=== PATIENT | female | born 2000 | race Caucasian/White ===

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

== ENCOUNTER → 2019-03-11 | Outpatient (CLI) | payer OTHER ==
--- NOTE | 2019-03-11 11:03 | REP ---
REASON: Biliary colic. COMPARISON: None. After the intravenous administration of 6.6 millicuries of technetium 99m Choletec, hepatobiliary imaging was performed with gallbladder ejection fraction calculation. There is symmetric distribution of the radiotracer throughout the hepatocytes. The gallbladder is promptly visualized at 10 minutes. The gallbladder ejection fraction is calculated at 83%. IMPRESSION: Normal exam. Electronically Signed by Olivier Morton DO 03/11/2019 12:45 P
== END ==
LOC: M RAD 07:20
PROVIDERS: ATTEND Surgery
DX: R10.11 Right upper quadrant pain (principal)
CPT/HCPCS: 78227; A9537; J2805

== ENCOUNTER 2019-04-04 12:04 | Day surgery (SDC) | payer OTHER ==
[~2019-04-04] VITALS: Ht 147.3 cm; Wt 61.4 kg
[~2019-04-04 12:04] MED LIST changes: +NS 1,000 ML IV ONE; +RANI15TA PO
[2019-04-04] MEDS ORDERED: LIDOCAINE 2% INJ 100 MG/5 ML SDV (FOR ANES.) As Ordered ONE ×2 (14:49→14:50)
[2019-04-04] MEDS ORDERED: PROPOFOL 200 MG/20 ML VIAL As Ordered ONE ×2 (14:49→15:10)
--- NOTE | 2019-04-04 15:14 | ROOR ---
Patient Name: Giovanna Hodge Procedure Date: 04/04/2019 2:59 PM Date of : 2000 Age: 18 Room: [facility] Gender: Female Note Status: Finalized Procedure: Upper GI endoscopy Indications: Epigastric abdominal pain Providers: Jamel Dunn Jr, MD Referring MD: Liseth JENNINGS DO Requesting Provider: Medicines: Propofol per Anesthesia Complications: No immediate complications. Procedure: Pre-Anesthesia Assessment: - Prior to the procedure, a History and Physical was performed, and patient medications and allergies were reviewed. The patient is competent. The risks and benefits of the procedure and the sedation options and risks were discussed with the patient. All questions were answered and informed consent was obtained. Patient identification and proposed procedure were verified by the physician and the nurse in the pre-procedure area and in the procedure room. Mental Status Examination: alert and oriented. Airway Examination: normal oropharyngeal airway and neck mobility. Respiratory Examination: clear to auscultation. CV Examination: normal. ASA Grade Assessment: II - A patient with mild systemic disease. After reviewing the risks and benefits, the patient was deemed in satisfactory condition to undergo the procedure. The anesthesia plan was to use moderate sedation / analgesia (conscious sedation). Immediately prior to administration of medications, the patient was re-assessed for adequacy to receive sedatives. The heart rate, respiratory rate, oxygen saturations, blood pressure, adequacy of pulmonary ventilation, and response to care were monitored throughout the procedure. The physical status of the patient was re-assessed after the procedure. The Endoscope was introduced through the mouth, and advanced to the duodenal bulb. The upper GI endoscopy was accomplished without difficulty. The upper GI endoscopy was accomplished without difficulty. The patient tolerated the procedure. Findings: The upper third of the esophagus, middle third of the esophagus and lower third of the esophagus were normal. The cardia, gastric fundus, gastric body, gastric antrum and prepyloric region of the stomach were normal. Biopsies were taken with a cold forceps for histology. One non-bleeding cratered duodenal ulcer with no stigmata of bleeding was found in the duodenal bulb. Impression: - Normal upper third of esophagus, middle third of esophagus and lower third of esophagus. - Normal cardia, gastric fundus, gastric body, antrum and prepyloric region of the stomach. Biopsied. - One non-bleeding duodenal ulcer with no stigmata of bleeding. Recommendation: - Discharge patient to home (ambulatory). - Return to my office as previously scheduled. Jamel Dunn MD Jamel Dunn Jr, MD 04/04/2019 3:14:06 PM Electronically signed by Jamel Dunn Jr, MD Number of Addenda: 0 Note Initiated On: 04/04/2019 2:59 PM Estimated Blood Loss: Estimated blood loss: none.
[2019-04-04 15:56] VITALS: BP 133/75
== END 2019-04-04 15:55 | disposition home or self-care (01) ==
LOC: M OPP 12:04
PROVIDERS: ATTEND Surgery
DX: K26.9 Duodenal ulcer, unspecified as acute or chronic, without hemorrhage or perforation (principal); R10.13 Epigastric pain

== ENCOUNTER → 2019-05-14 | Outpatient (CLI) | payer OTHER ==
[~2019-05-14] MED LIST changes: -NS 1,000 ML IV ONE
== END ==
LOC: M LAB 10:22
PROVIDERS: ATTEND Nurse Practitioner
DX: B96.81 Helicobacter pylori [H. pylori] as the cause of diseases classified elsewhere (principal)

== ENCOUNTER → 2019-08-07 | Outpatient (REF) | payer OTHER ==
[2019-08-07 17:34] LABS: BASO # 0.1 10^3/uL (0.0-0.2); BASO % 1.1 % (0.0-1.0); EOS # 0.1 10^3/uL (0.0-0.5); EOS % 1.6 % (0.0-3.0); HEMATOCRIT 37.7 % (36.0-47.0); HEMOGLOBIN 12.2 g/dl (12.0-15.5); LYMPH # 2.8 10^3/uL (1.5-5.0); LYMPH % 35.2 % (24.0-44.0); MEAN CORPUSCULAR HGB CONC 32.4 g/dl (32.0-36.5); MEAN CORPUSCULAR VOLUME 86.5 fl (80.0-96.0); MONO # 0.7 10^3/uL (0.0-0.8); MONO % 8.5 % (0.0-5.0); NEUTROPHILS # 4.2 10^3/uL (1.5-8.5); NEUTROPHILS % 53.5 % (36.0-66.0); PLATELET COUNT, AUTOMATED 332 10^3/uL (150-450); RED BLOOD COUNT 4.36 10^6/uL (4.00-5.40); WHITE BLOOD COUNT 7.9 10^3/uL (4.0-10.0)
[2019-08-07 17:53] LABS: ALBUMIN 4.1 GM/DL (3.2-5.2); ALT/SGPT 45 U/L (12-78); BILIRUBIN,TOTAL 0.2 MG/DL (0.2-1.0); BLOOD UREA NITROGEN 11 MG/DL (7-18); CALCIUM LEVEL 9.5 MG/DL (8.5-10.1); CARBON DIOXIDE LEVEL 27 MEQ/L (21-32); CHLORIDE LEVEL 104 MEQ/L (98-107); CREATININE FOR GFR 0.72 MG/DL (0.55-1.30); FREE T4 0.89 NG/DL (0.78-1.33); GLUCOSE, FASTING 74 MG/DL (70-100); POTASSIUM SERUM 3.9 MEQ/L (3.5-5.1); SODIUM LEVEL 137 MEQ/L (136-145); TOTAL PROTEIN 7.3 GM/DL (6.4-8.2)
[2019-08-07 17:55] LABS: TOTAL 25(OH) VITAMIN D 20.5 NG/ML (30.0-100.0)
== END ==
LOC: M LABDRWAD 16:21
PROVIDERS: ATTEND Physician Assistant
DX: R00.2 Palpitations (principal)

== ENCOUNTER → 2020-09-29 | Outpatient (REF) | payer OTHER ==
[~2020-09-29] MED LIST changes: +AMOX875T PO; +LIDO2SOL17 PO; +OMEP40CA97 PO
== END ==
LOC: M LAB REF 12:19
PROVIDERS: ATTEND Nurse Practitioner Family
DX: J02.9 Acute pharyngitis, unspecified (principal)

== ENCOUNTER 2020-09-30 20:16 | Emergency (ER) | payer OTHER ==
[~2020-09-30] VITALS: Ht 147.3 cm; Wt 65.9 kg
[2020-09-30 20:16] VITALS: BP 126/69
[~2020-09-30 20:16] MED LIST changes: -AMOX875T PO; -LIDO2SOL17 PO; -OMEP40CA97 PO
[2020-09-30] MEDS ORDERED: AMOX875T PO (20:23)
[2020-09-30] MEDS ORDERED: OMEP40CA97 PO (20:23)
[2020-09-30] MEDS ORDERED: ACETAMINOPHEN 325 MG TAB PO ONE (20:45)
[2020-09-30] MEDS ORDERED: LIDOCAINE VISCOUS 2% SOLN 15ML UDC SS ONE (20:45)
[2020-09-30 21:17] LABS: BASO # 0.1 10^3/uL (0.0-0.2); BASO % 0.4 % (0.0-1.0); EOS % 0.2 % (0.0-3.0); HEMATOCRIT 39.6 % (36.0-47.0); HEMOGLOBIN 12.8 g/dl (12.0-15.5); LYMPH # 1.2 10^3/uL (1.5-5.0); LYMPH % 8.5 % (24.0-44.0); MEAN CORPUSCULAR HGB CONC 32.3 g/dl (32.0-36.5); MEAN CORPUSCULAR VOLUME 89.8 fl (80.0-96.0); MONO # 1.2 10^3/uL (0.0-0.8); MONO % 8.9 % (2.0-8.0); NEUTROPHILS # 11.1 10^3/uL (1.5-8.5); NEUTROPHILS % 81.7 % (36.0-66.0); PLATELET COUNT, AUTOMATED 234 10^3/uL (150-450); RED BLOOD COUNT 4.41 10^6/uL (4.00-5.40); WHITE BLOOD COUNT 13.6 10^3/uL (4.0-10.0)
[2020-09-30 21:52] LABS: MONO REFLEX EBV COMP NEGATIVE (NEGATIVE)
[2020-09-30] MEDS ORDERED: LIDO2SOL17 PO (22:52)
[2020-10-02 18:07] LABS: EBV AB TO NUCLEAR ANTIGEN <18.0 U/mL (0.0-17.9); EBV VIRAL CAPSID AG IgG <18.0 U/mL (0.0-17.9); EBV VIRAL CAPSID AG IgM <36.0 U/mL (0.0-35.9)
== END 2020-09-30 23:04 | disposition home or self-care (01) ==
LOC: M ED 20:16
DX: J02.9 Acute pharyngitis, unspecified (principal)

== ENCOUNTER → 2020-10-06 | Outpatient (REF) | payer OTHER ==
[~2020-10-06] MED LIST changes: +AMOX875T PO; +LIDO2SOL17 PO; +OMEP40CA97 PO
== END ==
LOC: M LAB REF 16:47
PROVIDERS: ATTEND Physician Assistant
DX: J02.9 Acute pharyngitis, unspecified (principal)

== ENCOUNTER → 2021-01-13 | Outpatient (REF) | payer OTHER ==
[2021-01-13 14:34] LABS: HEMATOCRIT 38.4 % (36.0-47.0); HEMOGLOBIN 12.9 g/dl (12.0-15.5); MEAN CORPUSCULAR HEMOGLOBIN 29.1 pg (27.0-33.0); MEAN CORPUSCULAR HGB CONC 33.6 g/dl (32.0-36.5); MEAN CORPUSCULAR VOLUME 86.7 fl (80.0-96.0); PLATELET COUNT, AUTOMATED 315 10^3/uL (150-450); RED BLOOD COUNT 4.43 10^6/uL (4.00-5.40); WHITE BLOOD COUNT 8.3 10^3/uL (4.0-10.0)
[2021-01-13 15:35] LABS: HEPATITIS C VIRUS ABY INDEX < 0.0 INDEX (<0.8); HIV 1&2 SCREEN CENTAUR NEGATIVE (NEGATIVE)
[2021-01-13 16:16] LABS: CHLAMYDIA DNA AMPLIFICATION NEGATIVE (NEGATIVE); GC DNA AMPLIFICATION NEGATIVE (NEGATIVE)
== END ==
LOC: M PLALAB 10:44
PROVIDERS: ATTEND Advanced Practice Midwife
DX: Z34.01 Encounter for supervision of normal first pregnancy, first trimester (principal)

== ENCOUNTER → 2021-03-08 | Outpatient (CLI) | payer OTHER ==
[~2021-03-08] MED LIST changes: +OMEP40CA4 PO; -OMEP40CA97 PO
--- NOTE | 2021-03-08 13:29 | REP ---
INDICATION: ANATOMY - EDC 07/29/21. COMPARISON: None. TECHNIQUE: Transabdominal scanning FINDINGS: Multiple ultrasonographic images of the gravid uterus shows a single living intrauterine gestation in variable positions. Doppler interrogation of the heart shows a heart rate of 138 beats per minute. The placenta is posterior and not low-lying. The cervix measures 3.5 cm in length and is closed. The subjective amniotic fluid volume is within normal limits. BPD: 4.3 cm 19 weeks 0 days HC: 15.6 cm 18 weeks 4 days AC: 14.5 cm 19 weeks 6 days FL: 2.8 cm 18 weeks 5 days The estimated weight is 280 g. A percentile was not calculated by the technologist The anatomical structures seen to be unremarkable are as follows: Thalami, cavum septum pellucidum, cerebellum, cisterna magna, cerebral ventricles, spine, kidneys, stomach, upper lip, cord insertion, three-vessel umbilical cord, and upper and lower extremities. anatomical structures seen suboptimally are as follows: Four-chamber heart and ventricular outflow tracts IMPRESSION: Single living intrauterine gestation as described above with an estimated gestational age of 19 weeks 0 days via composite criteria and an estimated date of delivery of 08/02/2021 by today's exam. No anomalies were detected, however, recommend a follow-up examination to better visualize those structures not well seen today as described above. <Electronically signed by Olivier Morton > 03/08/21 [id number]
== END ==
LOC: M WHC 11:30
PROVIDERS: ATTEND Advanced Practice Midwife
DX: Z36.3 Encounter for antenatal screening for malformations (principal); Z3A.19 19 weeks gestation of pregnancy

== ENCOUNTER → 2021-03-25 | Outpatient (CLI) | payer OTHER ==
--- NOTE | 2021-03-25 10:25 | REP ---
INDICATION: F/U ANATOMY. FOLLOW-UP FOUR-CHAMBER HEART AND VENTRICULAR OUTFLOW TRACKS COMPARISON: 03/08/2021 TECHNIQUE: Transabdominal scanning FINDINGS: Multiple ultrasonographic images of the gravid uterus shows a single living intrauterine gestation in variable positions. Doppler interrogation of the heart shows a heart rate of 150 beats per minute. The placenta is posterior and not low-lying. The cervix measures 5 cm in length and is closed. The subjective amniotic fluid volume is within normal limits. BPD: 4.8 cm 20 weeks 4 days HC: 18.8 cm 21 weeks 1 day AC: 16.3 cm 21 weeks 2 days FL: 3.5 cm 21 weeks 1 day The estimated weight is 406 g which is at the 13th percentile for a 22 week 0 day gestational age. No images of the left ventricular outflow tract were obtained. Images of the right ventricular outflow track are suboptimal. Four-chamber heart was seen and was unremarkable in appearance. IMPRESSION: Single living intrauterine gestation as described above with an estimated gestational age of 21 weeks 0 days via composite criteria an estimated date of delivery of 08/05/2021 by today's exam. Follow-up ventricular outflow tracts is again recommended. <Electronically signed by Olivier Morton > 03/25/21 1022
== END ==
LOC: M WHC 07:52
PROVIDERS: ATTEND Advanced Practice Midwife
DX: Z36.89 Encounter for other specified antenatal screening (principal); Z3A.20 20 weeks gestation of pregnancy

== ENCOUNTER → 2021-04-08 | Outpatient (CLI) | payer OTHER | LOC: M PLALAB 11:23 | PROVIDERS: ATTEND Specialist | DX: Z34.82 Encounter for supervision of other normal pregnancy, second trimester (principal) ==

== ENCOUNTER → 2021-04-15 | Outpatient (CLI) | payer OTHER ==
[2021-04-15 13:54] LABS: HEMATOCRIT 33.8 % (36.0-47.0); HEMOGLOBIN 11.3 g/dl (12.0-15.5); MEAN CORPUSCULAR HGB CONC 33.4 g/dl (32.0-36.5); MEAN CORPUSCULAR VOLUME 92.6 fl (80.0-96.0); PLATELET COUNT, AUTOMATED 271 10^3/uL (150-450); RED BLOOD COUNT 3.65 10^6/uL (4.00-5.40)
[2021-04-15 15:46] LABS: GC DNA AMPLIFICATION NEGATIVE (NEGATIVE)
== END ==
LOC: M PLALAB 10:13
PROVIDERS: ATTEND Specialist
DX: Z34.02 Encounter for supervision of normal first pregnancy, second trimester (principal)

== ENCOUNTER → 2021-04-23 | Outpatient (CLI) | payer OTHER ==
--- NOTE | 2021-04-23 15:53 | REP ---
INDICATION: F/U ANATOMY. COMPARISON: 03/25/2021. TECHNIQUE: Real-time sonographic evaluation of the gravid uterus performed. FINDINGS: Estimated gestational age is26 weeks 1 day, EDC 07/29/2021. Today's measurements indicate appropriate growth. Presentation: Cephalic Placenta posterior, grade 2, without evidence of placenta previa. heart rate is recorded at 138 beats per minute. Amniotic fluid is subjectively normal. Closed cervical length is measured at 4.7 cm. Biometry chart: BPD: 63 mm, 25 weeks 4 days, 38th percentile. HC: 238 mm, 25 weeks 6 days, 43rd percentile AC: 211 mm, 25 weeks 5 days, 40th percentile Femur length: 46 mm, 25 weeks 0 days, 27th percentile HC to AC ratio: 1.12, normal range 1.00-1.19. Estimated weight: 813g, 16th percentile. Visualized anatomy today includes four-chamber heart and ventricular outflow tracts which appear unremarkable. IMPRESSION: Viable single intrauterine gestation as above. The four-chamber heart and ventricular outflow tracts are identified and are grossly unremarkable. <Electronically signed by Tk Montgomery > 04/23/21 [id number]
== END ==
LOC: M WHC 14:57
PROVIDERS: ATTEND Specialist
DX: Z34.02 Encounter for supervision of normal first pregnancy, second trimester (principal)

== ENCOUNTER → 2021-07-07 | Outpatient (REF) | payer OTHER | LOC: M SFHCWAGY 10:18 | PROVIDERS: ATTEND Obstetrics & Gynecology | DX: Z34.03 Encounter for supervision of normal first pregnancy, third trimester (principal) ==

== ENCOUNTER → 2021-12-24 | Outpatient (REF) | payer OTHER ==
[~2021-12-24] MED LIST changes: +PRENTAB9 PO
== END ==
LOC: M PLALAB 09:26
PROVIDERS: ATTEND Advanced Practice Midwife
DX: Z01.419 Encounter for gynecological examination (general) (routine) without abnormal findings (principal); Z12.4 Encounter for screening for malignant neoplasm of cervix

== ENCOUNTER → 2021-12-29 | Outpatient (CLI) | payer OTHER ==
[2021-12-29 13:07] LABS: BASO # 0.1 10^3/uL (0.0-0.2); BASO % 1.1 % (0.0-1.0); EOS # 0.2 10^3/uL (0.0-0.5); EOS % 2.7 % (0.0-3.0); HEMATOCRIT 39.3 % (36.0-47.0); HEMOGLOBIN 13.2 g/dl (12.0-15.5); LYMPH # 2.6 10^3/uL (1.5-5.0); LYMPH % 39.8 % (24.0-44.0); MEAN CORPUSCULAR HEMOGLOBIN 28.8 pg (27.0-33.0); MEAN CORPUSCULAR HGB CONC 33.6 g/dl (32.0-36.5); MEAN CORPUSCULAR VOLUME 85.8 fl (80.0-96.0); MONO # 0.5 10^3/uL (0.0-0.8); MONO % 7.6 % (2.0-8.0); NEUTROPHILS # 3.2 10^3/uL (1.5-8.5); NEUTROPHILS % 48.6 % (36.0-66.0); PLATELET COUNT, AUTOMATED 240 10^3/uL (150-450); RED BLOOD COUNT 4.58 10^6/uL (4.00-5.40); WHITE BLOOD COUNT 6.6 10^3/uL (4.0-10.0)
[2021-12-29 13:50] LABS: ALBUMIN 4.1 GM/DL (3.2-5.2); ALT/SGPT 20 U/L (12-78); BILIRUBIN,TOTAL 0.4 MG/DL (0.2-1.0); BLOOD UREA NITROGEN 15 MG/DL (7-18); CALCIUM LEVEL 8.9 MG/DL (8.5-10.1); CARBON DIOXIDE LEVEL 28 MEQ/L (21-32); CHLORIDE LEVEL 108 MEQ/L (98-107); CREATININE FOR GFR 0.72 MG/DL (0.55-1.30); FREE T4 1.08 NG/DL (0.76-1.46); GLOMERULAR FILTRATION RATE > 60.0 (>60); GLUCOSE, FASTING 75 MG/DL (70-100); POTASSIUM SERUM 4.2 MEQ/L (3.5-5.1); SODIUM LEVEL 140 MEQ/L (136-145); THYROID STIMULATING HORMONE 0.711 uIU/ML (0.358-3.740)
== END ==
LOC: M ADAMS 10:18
PROVIDERS: ATTEND Physician Assistant
DX: Z13.29 Encounter for screening for other suspected endocrine disorder (principal)

== ENCOUNTER → 2022-03-31 | Outpatient (REF) | payer OTHER ==
[2022-03-31 13:06] LABS: BASO # 0.1 10^3/uL (0.0-0.2); BASO % 1.2 % (0.0-1.0); EOS # 0.1 10^3/uL (0.0-0.5); EOS % 1.2 % (0.0-3.0); HEMATOCRIT 41.4 % (36.0-47.0); HEMOGLOBIN 13.7 g/dl (12.0-15.5); LYMPH # 2.5 10^3/uL (1.5-5.0); LYMPH % 43.1 % (24.0-44.0); MEAN CORPUSCULAR HEMOGLOBIN 29.5 pg (27.0-33.0); MEAN CORPUSCULAR HGB CONC 33.1 g/dl (32.0-36.5); MONO # 0.4 10^3/uL (0.0-0.8); MONO % 7.2 % (2.0-8.0); NEUTROPHILS # 2.7 10^3/uL (1.5-8.5); NEUTROPHILS % 47.1 % (36.0-66.0); PLATELET COUNT, AUTOMATED 257 10^3/uL (150-450); RED BLOOD COUNT 4.65 10^6/uL (4.00-5.40); WHITE BLOOD COUNT 5.7 10^3/uL (4.0-10.0)
[2022-03-31 13:51] LABS: ALBUMIN 4.2 GM/DL (3.2-5.2); ALT/SGPT 18 U/L (12-78); BILIRUBIN,TOTAL 0.3 MG/DL (0.2-1.0); BLOOD UREA NITROGEN 15 MG/DL (7-18); CALCIUM LEVEL 9.7 MG/DL (8.5-10.1); CARBON DIOXIDE LEVEL 27 MEQ/L (21-32); CHLORIDE LEVEL 103 MEQ/L (98-107); CREATININE FOR GFR 0.72 MG/DL (0.55-1.30); GLOMERULAR FILTRATION RATE > 60.0 (>60); GLUCOSE, FASTING 76 MG/DL (70-100); POTASSIUM SERUM 3.9 MEQ/L (3.5-5.1); SODIUM LEVEL 136 MEQ/L (136-145); TOTAL PROTEIN 7.1 GM/DL (6.4-8.2)
[2022-04-06 16:11] LABS: ANA (HEP2) Negative (.); F002-IgE Milk < 0.10 kU/L (Class 0); F013-IgE Peanut < 0.10 kU/L (Class 0); F014-IgE Soybean < 0.10 kU/L (Class 0); F026-IgE Pork < 0.10 kU/L (Class 0); F027-IgE Beef < 0.10 kU/L (Class 0); F245-IgE Egg, Whole < 0.10 kU/L (Class 0); FX02-IgE Food Mix (Sea Foods) Negative (.)
== END ==
LOC: M LABDRWAD 12:34
PROVIDERS: ATTEND Physician Assistant
DX: L27.2 Dermatitis due to ingested food (principal)

== ENCOUNTER → 2022-07-26 | Outpatient (REF) | payer OTHER | LOC: M SFHCDERM 14:46 | PROVIDERS: ATTEND Nurse Practitioner Family | DX: K13.0 Diseases of lips (principal) ==

== ENCOUNTER → 2022-07-29 | Outpatient (REF) | payer OTHER | LOC: M LAB REF 15:00 | PROVIDERS: ATTEND Physician Assistant | DX: Z86.14 Personal history of Methicillin resistant Staphylococcus aureus infection (principal) ==

== ENCOUNTER → 2022-11-24 | Outpatient (CLI) | payer OTHER ==
[~2022-11-24] MED LIST changes: +LIDO15SO PO; -LIDO2SOL17 PO
[2022-11-24 17:54] LABS: BASO # 0.1 10^3/uL (0.0-0.2); EOS # 0.1 10^3/uL (0.0-0.5); HEMATOCRIT 38.8 % (36.0-47.0); LYMPH # 2.9 10^3/uL (1.5-5.0); LYMPH % 37.3 % (24.0-44.0); MEAN CORPUSCULAR HEMOGLOBIN 30.1 pg (27.0-33.0); MEAN CORPUSCULAR HGB CONC 33.5 g/dl (32.0-36.5); MEAN CORPUSCULAR VOLUME 89.8 fl (80.0-96.0); MONO # 0.6 10^3/uL (0.0-0.8); MONO % 8.1 % (2.0-8.0); NEUTROPHILS # 4.1 10^3/uL (1.5-8.5); NEUTROPHILS % 52.3 % (36.0-66.0); PLATELET COUNT, AUTOMATED 274 10^3/uL (150-450); RED BLOOD COUNT 4.32 10^6/uL (4.00-5.40); WHITE BLOOD COUNT 7.8 10^3/uL (4.0-10.0)
[2022-11-24 18:16] LABS: ALBUMIN 4.1 G/DL (3.2-5.2); ALKALINE PHOSPHATASE 69 U/L (46-116); ALT/SGPT 13 U/L (7.0-40); AST/SGOT 17 U/L (<34); BILIRUBIN,TOTAL 0.4 MG/DL (0.3-1.2); BLOOD UREA NITROGEN 18 MG/DL (9-23); CALCIUM LEVEL 9.1 MG/DL (8.5-10.1); CARBON DIOXIDE LEVEL 28 MMOL/L (20-31); CHLORIDE LEVEL 104 MMOL/L (98-107); CREATININE FOR GFR 0.64 MG/DL (0.55-1.30); GLOMERULAR FILTRATION RATE > 60.0 (>60); GLUCOSE, FASTING 97 MG/DL (60-100); SODIUM LEVEL 138 MMOL/L (136-145); TOTAL PROTEIN 6.7 G/DL (5.7-8.2)
[2022-11-24 18:18] LABS: FREE T4 0.94 NG/DL (0.89-1.76); THYROID STIMULATING HORMONE 0.673 uIU/ML (0.55-4.78)
== END ==
LOC: M PLALAB 15:09
PROVIDERS: ATTEND Nurse Practitioner Family
DX: N92.0 Excessive and frequent menstruation with regular cycle (principal)

== ENCOUNTER → 2022-12-02 | Outpatient (CLI) | payer OTHER ==
[2022-12-02 13:45] LABS: BASO # 0.1 10^3/uL (0.0-0.2); BASO % 1.1 % (0.0-1.0); EOS # 0.1 10^3/uL (0.0-0.5); EOS % 2.5 % (0.0-3.0); HEMOGLOBIN 12.7 g/dl (12.0-15.5); LYMPH # 2.1 10^3/uL (1.5-5.0); LYMPH % 43.4 % (24.0-44.0); MEAN CORPUSCULAR HEMOGLOBIN 29.7 pg (27.0-33.0); MEAN CORPUSCULAR HGB CONC 32.6 g/dl (32.0-36.5); MEAN CORPUSCULAR VOLUME 91.3 fl (80.0-96.0); MONO # 0.4 10^3/uL (0.0-0.8); MONO % 7.6 % (2.0-8.0); NEUTROPHILS # 2.1 10^3/uL (1.5-8.5); NEUTROPHILS % 45.2 % (36.0-66.0); PLATELET COUNT, AUTOMATED 260 10^3/uL (150-450); RED BLOOD COUNT 4.27 10^6/uL (4.00-5.40); WHITE BLOOD COUNT 4.7 10^3/uL (4.0-10.0)
[2022-12-02 13:59] LABS: C REACTIVE PROTEIN QUANTITATIV < 0.40 MG/DL (<1.0)
[2022-12-02 14:01] LABS: ALBUMIN 4.1 G/DL (3.2-5.2); ALKALINE PHOSPHATASE 61 U/L (46-116); ALT/SGPT 24 U/L (7.0-40); AST/SGOT 33 U/L (<34); BILIRUBIN,TOTAL 0.5 MG/DL (0.3-1.2); BLOOD UREA NITROGEN 19 MG/DL (9-23); CARBON DIOXIDE LEVEL 28 MMOL/L (20-31); CHLORIDE LEVEL 107 MMOL/L (98-107); CREATININE FOR GFR 0.68 MG/DL (0.55-1.30); GLOMERULAR FILTRATION RATE > 60.0 (>60); GLUCOSE, FASTING 84 MG/DL (60-100); POTASSIUM SERUM 4.3 MMOL/L (3.5-5.1); RHEUMATOID FACTOR QUANT < 3.5 IU/ML (<14); SODIUM LEVEL 139 MMOL/L (136-145); TOTAL PROTEIN 6.6 G/DL (5.7-8.2)
[2022-12-02 14:02] LABS: FREE T4 1.04 NG/DL (0.89-1.76); THYROID STIMULATING HORMONE 0.902 uIU/ML (0.55-4.78)
[2022-12-02 14:48] LABS: ERYTHROCYTE SEDIMENTATION RATE 5 mm/hr (0-20)
== END ==
LOC: M LABDRWAD 07:39
PROVIDERS: ATTEND Physician Assistant
DX: K58.1 Irritable bowel syndrome with constipation (principal); M25.50 Pain in unspecified joint

== ENCOUNTER → 2022-12-27 | Outpatient (CLI) | payer OTHER | LOC: M WHC 14:56 | PROVIDERS: ATTEND Nurse Practitioner Family | DX: N92.6 Irregular menstruation, unspecified (principal) ==

== ENCOUNTER → 2023-01-12 | Outpatient (REF) | payer OTHER | LOC: M SFHCWAGY 17:19 | PROVIDERS: ATTEND Advanced Practice Midwife | DX: Z12.4 Encounter for screening for malignant neoplasm of cervix (principal); R87.612 Low grade squamous intraepithelial lesion on cytologic smear of cervix (LGSIL); N93.0 Postcoital and contact bleeding | CPT/HCPCS: 87070; 87624; G0123 ==

== ENCOUNTER → 2024-03-11 | Outpatient (CLI) | payer OTHER ==
[~2024-03-11] MED LIST changes: -LIDO15SO PO; +LIDO15SO8 PO; +ONDA-282 PO; -ONDA4TAB6 PO
== END ==
LOC: M RAD 11:12
PROVIDERS: ATTEND Physician Assistant
DX: R39.198 Other difficulties with micturition (principal)

== ENCOUNTER → 2025-03-19 | Outpatient (CLI) | payer OTHER ==
[2025-03-19 18:31] LABS: PLATELET COUNT, AUTOMATED 316 10^3/uL (150-450)
[2025-03-19 19:12] LABS: Trichomonas vaginalis (AMP) NOT DETECTED (NEGATIVE)
[2025-03-19 19:35] LABS: GC DNA AMPLIFICATION NEGATIVE (NEGATIVE); HIV 1&2 SCREEN NEGATIVE (NEGATIVE)
[2025-03-19 19:42] LABS: HEPATITIS C VIRUS ABY INDEX 0.05 INDEX (<0.8)
== END ==
LOC: M PLALAB 15:46
PROVIDERS: ATTEND Advanced Practice Midwife
DX: Z34.81 Encounter for supervision of other normal pregnancy, first trimester (principal); Z3A.00 Weeks of gestation of pregnancy not specified

== ENCOUNTER → 2025-05-09 | Outpatient (CLI) | payer OTHER | LOC: M PLALAB 13:49 | PROVIDERS: ATTEND Obstetrics & Gynecology | DX: Z34.80 Encounter for supervision of other normal pregnancy, unspecified trimester (principal) ==

== ENCOUNTER → 2025-05-15 | Outpatient (CLI) | payer OTHER | LOC: M RAD 14:34 | PROVIDERS: ATTEND Advanced Practice Midwife | DX: Z34.81 Encounter for supervision of other normal pregnancy, first trimester (principal) ==